=== PATIENT | female | born 1975 | race Two or more races ===

== ENCOUNTER 2024-01-15 08:26 | Emergency (ER) | payer OTHER ==
[~2024-01-15] VITALS: Ht 157.5 cm; Wt 65.8 kg
[~2024-01-15 08:26] MED LIST: CEPHALEXIN125 MG/5 M PO
[2024-01-15] MEDS ORDERED: PROMETRIUM200 MG (08:39)
[2024-01-15] MEDS ORDERED: 0.9 % SODIUM CHLORIDE 500 ML IV STA (09:02)
[2024-01-15] MEDS ORDERED: ONDANSETRON HCL 2 MG/ML VIAL IV STA (09:03)
[2024-01-15 09:47] LABS: INR 1.01; PARTIAL THROMBOPLASTIN TIME 32.4 SECONDS (22.0-34.0)
[2024-01-15 09:52] LABS: ALBUMIN 3.7 gm/dL (3.4-5.0); BILIRUBIN TOTAL 1.03 mg/dL (0.3-1.2); CALCIUM 8.7 mg/dL (8.5-10.1); CREATININE SERUM 0.71 mg/dL (0.55-1.02); GFR 87.86; GLOBULINA 3.6 G/DL (2.4-3.5); POTASSIUM 3.54 mEq/L (3.5-5.1); TOTAL PROTEIN 7.3 gm/dL (6.4-8.2)
[2024-01-15 10:25] LABS: HEMATOCRIT 38.5 % (36.0-45.00); HEMOGLOBIN 13.3 g/dL (12.0-15.00); MEAN CELL VOLUME 85.3 fL (80.00-100.00); MEAN CORPUSCULAR HEMOGLOBIN 29.4 pg (27.00-32.0); MEAN CORPUSCULAR HGB CONC 34.5 g/dl (32.0-36.0); PLATELET COUNT 146 K/uL (150-450); RED BLOOD COUNT 4.51 M/uL (4.00-6.00); RED CELL DISTRIBUTION WIDTH 14.6 % (11.5-14.5)
== END 2024-01-15 10:58 | disposition home or self-care (01) ==
LOC: ER 08:28
PROVIDERS: General Practice
DX: A90 Dengue fever [classical dengue] (principal); R74.8 Abnormal levels of other serum enzymes